=== PATIENT | female | born 1935 | race Caucasian/White ===

== ENCOUNTER 2019-02-24 10:38 | Inpatient (IN) | payer MEDICARE, BC ==
[~2019-02-24] VITALS: Ht 157.5 cm; Wt 46.3 kg
--- NOTE | 2019-02-24 10:45 | NUR ---
patient TAMMY, from [facility], had a syncopal episode while getting out of elevator assisted by caregiver. On room air, breathing evenly and unlabored. Connected to the monitor and pulse ox. kept comfortable, will continue to monitor accordingly.
[2019-02-24] MEDS ORDERED: IV NS 0.9% 500 ML BAG IV ONE (11:00)
[2019-02-24 11:06] LABS: BASOPHILS # (AUTO) 0.1 /CMM (0.0-0.2); BASOPHILS % (AUTO) 0.5 % (0.0-2.0); EOSINOPHILS % (AUTO) 1.7 % (0.0-6.0); HEMATOCRIT 39 % (33-45); HEMOGLOBIN 12.9 g/dL (11.5-14.8); LYMPHOCYTES # (AUTO) 0.8 /CMM (0.8-4.8); LYMPHOCYTES % (AUTO) 7.7 % (20.0-44.0); MEAN CORPUSCULAR HGB CONC 33 g/dl (31.0-36.0); MEAN CORPUSCULAR VOLUME 91 fL (82-100); MONOCYTES # (AUTO) 0.7 /CMM (0.1-1.30); MONOCYTES % (AUTO) 6.8 % (2.0-12.0); NEUTROPHILS # (AUTO) 8.5 /CMM (1.8-8.9); NEUTROPHILS % (AUTO) 83.3 % (43.0-81.0); PLATELET COUNT (AUTO) 265 /CMM (150-450); RED BLOOD CELL COUNT(AUTO) 4.23 MIL/uL (4.0-5.2); WHITE BLOOD COUNT (AUTO) 10.2 K/uL (4.3-11.0)
[2019-02-24] MEDS ORDERED: DONE10TA44 PO (11:13)
[2019-02-24] MEDS ORDERED: MEMA10TA PO (11:13)
[2019-02-24] MEDS ORDERED: LISI-603 PO (11:13)
[2019-02-24] MEDS ORDERED: ROSU10TA2 PO (11:13)
[2019-02-24] MEDS ORDERED: LEVO25TA7 PO (11:13)
[2019-02-24 11:21] LABS: CALCIUM, SERUM 10.2 mg/dL (8.5-10.1); CARBON DIOXIDE 29 mmol/L (21-32); CHLORIDE 100 mmol/L (98-107); GLUCOSE 122 mg/dL (74-106); SODIUM SERUM 136 mmol/L (136-145); UREA NITROGEN, BLOOD 15 mg/dL (7-18)
[2019-02-24 11:36] LABS: ALANINE AMINOTRANSFERASE 11 U/L (12-78); ALKALINE PHOSPHATASE 83 U/L (46-116); ASPARTATE AMINOTRANSFERASE 20 U/L (15-37); BILIRUBIN,DIRECT 0.1 mg/dL (0.0-0.2); BILIRUBIN,TOTAL 0.6 mg/dL (0.2-1.0); TOTAL PROTEIN, SERUM 7.8 g/dL (6.4-8.2)
--- NOTE | 2019-02-24 12:31 | NUR ---
EPIC ON-CALL PAGED AGAIN
--- NOTE | 2019-02-24 12:46 | NUR ---
NURSING SUP GAVE BED 327-2.
--- NOTE | 2019-02-24 12:55 | NUR ---
report given to Bijal LOWRY for giuliano.
--- NOTE | 2019-02-24 13:13 | NUR ---
PAGED Adteractive FOR THIRD TIME.
--- NOTE | 2019-02-24 13:58 | NUR ---
wheeled patient via gurney accompanied by RN and emt in no apparent distress, victorino RN at bedside to assume care.
[2019-02-24] MEDS ORDERED: Z GUARD REMEDY 2 OZ OINT TP PRN (14:00)
[2019-02-24] MEDS ORDERED: MAG HYDROX/AL HYDROX/SIMETH 30 ML UDC PO PRN (14:00)
[2019-02-24] MEDS ORDERED: ACETAMINOPHEN 325 MG TABLET PO PRN (14:00)
[2019-02-24] MEDS ORDERED: HYDROCODONE/APAP 5/325MG 1 EACH TABLET PO PRN (14:00)
[2019-02-24] MEDS ORDERED: ONDANSETRON HCL/PF 4 MG/2 ML VIAL IVP PRN (14:00)
[2019-02-24] MEDS ORDERED: ZOLPIDEM TARTRATE 5 MG TABLET PO PRN (14:00)
[2019-02-24] MEDS ORDERED: MAGNESIUM HYDROXIDE 30 ML UDC PO PRN (14:00)
[2019-02-24 16:00] VITALS: BP_SYST 140; BP_SYST 149; BP_DIAS 73
--- NOTE | 2019-02-24 16:00 | NUR ---
MS RN RECEIVED A NEW ADMISSION,83 YEARS OLD PATIENT, AWAKE,ALERT,ORIENTED X3-4 ,CAME IN W/ DX OF SYNCOPE,NOT IN ANY FORM OF DISTRESS, RESPIRATIONS EVEN AND UNLABORED,ALL NEEDS ATTENDED.
--- NOTE | 2019-02-24 17:00 | NUR ---
MS RN ON BED, NO DISTRESS NOTED,ALL NEEDS ATTENDED.
--- NOTE | 2019-02-24 18:20 | NUR ---
ms rn on bed, all needs attended.
[2019-02-24] MEDS: IV NS 0.9% 1,000 ML IV SCH (18:27)
[2019-02-24 20:00] VITALS: BP 90/70
[2019-02-25 01:00] VITALS: BP 136/91
--- NOTE | 2019-02-25 02:00 | NUR ---
pt confused out of bed. patient set bed alarm off. confused states she needs to get back to her room. "I am in room 317. I need to go up stairs that is where my clothes are." patient reoriented to unit. and helped back into bed. reinforced she will arpit be with us a short time and will then most likely return to her apartment at [place]. srx2 bed alarm active. will cont to monitor.
[2019-02-25] MEDS: IV NS 0.9% 1,000 ML IV SCH (02:56)
--- NOTE | 2019-02-25 02:57 | NUR ---
ivf missed dose, previous unit still infusing.
[2019-02-25 04:00] VITALS: BP 139/68
--- NOTE | 2019-02-25 06:00 | NUR ---
RN PM CLOSING NOTE. PATIENT ASSISTED TO THE BATHROOM. HAD TO BE REORIENTED AGAIN TO PLACE AND WHAT HAPPENED TO GET HER IN THE HOSPITAL. PATIENT VERBALIZED UNDERSTANDING AND ASSISTED BACK TO BED. PATIENT DENIES PAIN OR DIZINESS. PATIENT HAS NS AT 75ML PER HOUR IV HAS NO S/S OF COMPLICATIONS. SAFETY PRECAUTIONS IN PLACE BED ALARM ACTIVE.
[2019-02-25 06:22] LABS: BASOPHILS # (AUTO) 0.1 /CMM (0.0-0.2); EOSINOPHILS % (AUTO) 1.1 % (0.0-6.0); HEMATOCRIT 36 % (33-45); LYMPHOCYTES % (AUTO) 12.1 % (20.0-44.0); MEAN CORPUSCULAR HGB CONC 34 g/dl (31.0-36.0); MEAN CORPUSCULAR VOLUME 90 fL (82-100); MONOCYTES % (AUTO) 11.6 % (2.0-12.0); NEUTROPHILS # (AUTO) 6.3 /CMM (1.8-8.9); NEUTROPHILS % (AUTO) 74.2 % (43.0-81.0); PLATELET COUNT (AUTO) 229 /CMM (150-450); RED BLOOD CELL COUNT(AUTO) 3.97 MIL/uL (4.0-5.2); WHITE BLOOD COUNT (AUTO) 8.5 K/uL (4.3-11.0)
[2019-02-25 06:50] LABS: CALCIUM, SERUM 9.2 mg/dL (8.5-10.1); CREATININE 0.8 mg/dL (0.6-1.3); MAGNESIUM 1.8 mg/dL (1.8-2.4); PHOSPHORUS 3.1 mg/dL (2.5-4.9); POTASSIUM 3.7 mmol/L (3.5-5.1)
[2019-02-25] MEDS ORDERED: IV NS 0.9% 1,000 ML IV PRN (07:48)
--- NOTE | 2019-02-25 07:57 | NUR ---
MEAT CURER OPENING NOTES RECEIVED PT LAYING IN BED WITH HOB ELEVATED. PT IS A/O X2, AFEBRILE. RESPIRATIONS ARE EVEN AND UNLABORED, NOT IN ANY ACUTE DISTRESS NOTED. PT DENIES ANY PAIN AT THIS TIME, NO C/O SOB, N/V. IV SITE TO LAC INTACT, NO INFILTRATION NOTED. DRESSING KEPT CLEAN AND DRY. SAFETY MEASURES ARE IN PLACE. INSTRUCTED PT TO USE CALL LIGHT WHEN ASSISTANCE IS NEEDED, CALL LIGHT IS LEFT WITHIN REACH. WILL MONITOR THROUGHOUT SHIFT FOR CONTINUITY OF CARE.
[2019-02-25 08:00] VITALS: BP_SYST 119; BP_SYST 125; BP_SYST 139; BP_DIAS 68; BP_DIAS 77; BP_DIAS 83
[2019-02-25] MEDS: LEVOTHYROXINE SODIUM 100 MCG TABLET PO SCH (08:53)
[2019-02-25] MEDS: MEMANTINE HCL 5 MG TABLET PO SCH (08:53)
[2019-02-25] MEDS: DONEPEZIL 5 MG TABLET PO SCH (08:53)
[2019-02-25] MEDS: LISINOPRIL (20MG) 20 MG TABLET PO SCH (08:54)
[2019-02-25] MEDS ORDERED: ATORVASTATIN 10 MG TABLET PO SCH (09:00)
--- NOTE | 2019-02-25 12:31 | NUR ---
MS RN NOTES-- PT ABLE TO MAKE NEEDS KNOWN, NEEDS RENDERED. PT DOES NOT APPEAR TO BE IN ANY ACUTE DISTRESS. WILL CONTINUE TO MONITOR.
--- NOTE | 2019-02-25 18:22 | NUR ---
MS RN CLOSING NOTES ALL DUE MEDS GIVEN. NEEDS MET AND RENDERED. PT REMAINS A/O X2, AFEBRILE. RESPIRATIONS ARE EVEN AND UNLABORED, NOT IN ANY ACUTE DISTRESS NOTED. PT DENIES ANY PAIN AT THIS TIME, NO C/O SOB, N/V. IV SITE TO LFA G22 INTACT, NO INFILTRATION NOTED. DRESSING KEPT CLEAN AND DRY. SAFETY MEASURES ARE IN PLACE. REMINDED PT TO USE CALL LIGHT WHEN ASSISTANCE IS NEEDED, CALL LIGHT IS LEFT WITHIN REACH. WILL ENDORSE TO NEXT SHIFT FOR CONTINUITY OF CARE.
[2019-02-25 20:00] VITALS: BP 145/77
--- NOTE | 2019-02-25 20:00 | NUR ---
MS/RN OPENING NOTES RECEIVED PATIENT IN BED, AWAKE, ALERT, SITTING IN BED, ABLE TO AMBULATE WITH ASSISTACNE, REQUIRE FREQUENT MONITORING FOR SAFETY, BED LOCKED, CALL LIGHTS WITHIN REACH, ABLE TO EAT SNACKS AND DRINK FLUIDS, DENIES ANY PAIN. WILL MONITOR FOR ANY CHANGES. BED LOCKED, CALL LIGHTS WITHIN REACH, EDUCATED TO USE CALL LIGHTS FOR ASSISTANCE, IV ON LFA GAUGW 20 WITH NO REDNESS OR INFILTRATION.
--- NOTE | 2019-02-25 23:54 | NUR ---
MS/RN NOTES PATIENT REMOVE IV, PULL OUT AND UNABLE TO SIT STILL REQUIRE MONITOIRNG, KEPR COMFORTABLE AND ASSISTED TO BED, DISCUSSED SAFETY, PATIENT WITH FORGETFULNESS BUT ABLE TO COOPERATE WITH REORIENTATION. WILL MONITOR.ABLE TO DRINK FLUIDS, REFUSED IV REINSERTION.
--- NOTE | 2019-02-26 00:17 | NUR ---
MS/RN NOTES PATIENT OBSERVE CHANGING INTO HER CLOTHES AND WANTING TO GO BACK TO HER ROOM, ALERT X1, REORIENTED TO PLACE AND TIME. TO MONITOR.
[2019-02-26 05:47] VITALS: BP_SYST 132; BP_SYST 136; BP_SYST 146; BP_DIAS 92; BP_DIAS 93; BP_DIAS 96
--- NOTE | 2019-02-26 05:53 | NUR ---
MS/RN NOTES PATIENT REORIENTED TO TIME AND PLACE, REQUIRING FREQUENT MONITORING FOR SAFETY PATIENT TENDS TO LEAVE THE ROOM, REFUSE IV REINSERTION AND STATED SHE HAS BEEN DRINKING ALOT OF FLUIDS, WILL ENCOURAGE AND PROVIDE FLUIDS.TO HAVE MD AWARE ABOUT VITAL SIGNS SITTING, STANDING AND LYING. 136/43, 132/93, 146/92 RESPECTIVELY.
--- NOTE | 2019-02-26 06:57 | NUR ---
MS/RN CLOSING NOTES PATIENT IN BED ABLE TO AMBULATE AND REQUIRE ASSISTANCE, REORIENTATION AT TIMES, RESPIRATIONS EVEN AND UNLABORED, REFUSES TO HAVE IV REINSERTION AT THIS TIME BUT ABLE TO DRINK ADEQUATE FLUIDS WHEN OFFERED.WILL MONITOR, TO ENDORSE TO AM RN FOR JESSICA. BED LOCKED, CALL LIGHTS WITHIN REACH.
[2019-02-26 07:21] LABS: BASOPHILS # (AUTO) 0.1 /CMM (0.0-0.2); BASOPHILS % (AUTO) 0.8 % (0.0-2.0); EOSINOPHILS % (AUTO) 2.7 % (0.0-6.0); HEMATOCRIT 39 % (33-45); HEMOGLOBIN 12.6 g/dL (11.5-14.8); LYMPHOCYTES # (AUTO) 1.3 /CMM (0.8-4.8); LYMPHOCYTES % (AUTO) 14.7 % (20.0-44.0); MEAN CORPUSCULAR HGB CONC 33 g/dl (31.0-36.0); MEAN CORPUSCULAR VOLUME 90 fL (82-100); MONOCYTES # (AUTO) 1.1 /CMM (0.1-1.30); MONOCYTES % (AUTO) 11.8 % (2.0-12.0); NEUTROPHILS # (AUTO) 6.4 /CMM (1.8-8.9); PLATELET COUNT (AUTO) 257 /CMM (150-450); RED BLOOD CELL COUNT(AUTO) 4.29 MIL/uL (4.0-5.2); WHITE BLOOD COUNT (AUTO) 9.1 K/uL (4.3-11.0)
[2019-02-26 07:28] LABS: CALCIUM, SERUM 9.3 mg/dL (8.5-10.1); CREATININE 0.7 mg/dL (0.6-1.3); POTASSIUM 3.4 mmol/L (3.5-5.1)
--- NOTE | 2019-02-26 07:33 | NUR ---
MS RN OPENING NOTES RECEIVED PT LAYING IN BED WITH HOB ELEVATED. PT IS A/O X2, AFEBRILE. RESPIRATIONS ARE EVEN AND UNLABORED, NOT IN ANY ACUTE DISTRESS NOTED. PT DENIES ANY PAIN AT THIS TIME, NO C/O SOB, N/V. IV SITE TO LFA INTACT, NO INFILTRATION NOTED. DRESSING KEPT CLEAN AND DRY. SAFETY MEASURES ARE IN PLACE. INSTRUCTED PT TO USE CALL LIGHT WHEN ASSISTANCE IS NEEDED, CALL LIGHT IS LEFT WITHIN REACH. WILL MONITOR THROUGHOUT SHIFT FOR CONTINUITY OF CARE.
[2019-02-26 08:00] VITALS: BP 123/60
[2019-02-26] MEDS: DONEPEZIL 5 MG TABLET PO SCH (08:28)
[2019-02-26] MEDS: LEVOTHYROXINE SODIUM 100 MCG TABLET PO SCH (08:28)
[2019-02-26] MEDS: MEMANTINE HCL 5 MG TABLET PO SCH (08:28)
[2019-02-26 08:29] VITALS: BP 123/60
[2019-02-26] MEDS: LISINOPRIL (20MG) 20 MG TABLET PO SCH (08:29)
--- NOTE | 2019-02-26 08:30 | NUR ---
MS RN NOTES-- PT WAS SEEN AND EXAMINED BY DR. TOMMY Adams/ ORDERS FOR DISCHARGE.
[2019-02-26] MEDS ORDERED: POTASSIUM CHLORIDE 20 MEQ TAB.PRT.SR PO SCH (11:00)
--- NOTE | 2019-02-26 11:15 | NUR ---
MS STONE SETTER METAL OPTICAL FRAMES NOTE PT DISCHARGED TO [facility] IN MEDICALLY STABLE CONDITION. PT IS A/O X2, AFEBRILE. RESPIRATIONS ARE EVEN AND UNLABORED, NOT IN ANY ACUTE DISTRESS NOTED. PUPILS ARE REACTIVE TO LIGHT, BILATERAL HAND PORTFOLIO DIRECTOR ARE STRONG AND EQUAL. PT DENIES ANY PAIN, SOB, N/V. ABDOMEN IS SOFT AND NONDISTENDED, BOWEL SOUNDS ARE PRESENT IN ALL 4 QUADRANTS UPON AUSCULTATION. DENIES ANY BLADDER DISCOMFORT. NO SKIN ISSUES NOTED, SKIN IS INTACT, CLEAN AND DRY. IV SITE REMOVED, APPLIED PRESSURE AND TOLERATED WELL. PT IS AMBULATORY WITH STEADY GAIT. EXPLAINED DISCHARGE PAPERWORK TO [facility] WITH VERBAL UNDERSTANDING. ALL BELONGINGS SENT WITH PT. PT LEFT IN STABLE CONDITION AND ACCOMPANIED TO PERSONAL VEHICLE WITH DTR.
== END 2019-02-26 11:15 | DRG 641 ==
LOC: ER 10:39 → TELE 13:00 → MED 02-25 08:56
PROVIDERS: ADMIT Family Medicine; ATTEND Family Medicine
DX: E86.9 Volume depletion, unspecified (principal); I95.1 Orthostatic hypotension; R73.9 Hyperglycemia, unspecified; E78.5 Hyperlipidemia, unspecified; E03.9 Hypothyroidism, unspecified; E83.52 Hypercalcemia; F03.90 Unspecified dementia, unspecified severity, without behavioral disturbance, psychotic disturbance, mood disturbance, and anxiety; I10 Essential (primary) hypertension; E86.0 Dehydration
CPT/HCPCS: 36415; 71045-TC; 80048-TC; 80061-TC; 80076-TC; 82962-TC; 83735-TC; 84100-TC; 84484-TC; 85025-TC; 87081-TC; 93307-TC; 93880-TC; G0378; J7030; J7040

== ENCOUNTER 2019-04-04 10:54 | Emergency (ER) | payer MEDICARE, BC ==
[~2019-04-04] VITALS: Ht 152.4 cm; Wt 45.4 kg
[~2019-04-04 10:54] MED LIST: DONE10TA44 PO; LEVO25TA7 PO; LISI-603 PO; MEMA10TA PO; ROSU10TA2 PO
--- NOTE | 2019-04-04 11:05 | NUR ---
ERNA Lawson FROM THE [facility] C/O WITNESSED SYNCOPAL EPISODE. PATIENT A/OX4, BREATHING EVEN AND UNLABORED, NO SOB NOTED, NEEDS ATTENDED. DENIES PAIN AT THIS TIME. IV LINE ON LEFT AC G20, PATENT AND FLUSHES WELL.
[2019-04-04 11:12] LABS: BASOPHILS # (AUTO) 0.1 /CMM (0.0-0.2); BASOPHILS % (AUTO) 1.2 % (0.0-2.0); EOSINOPHILS % (AUTO) 1.5 % (0.0-6.0); HEMATOCRIT 38 % (33-45); HEMOGLOBIN 12.4 g/dL (11.5-14.8); LYMPHOCYTES # (AUTO) 1.4 /CMM (0.8-4.8); LYMPHOCYTES % (AUTO) 21.5 % (20.0-44.0); MEAN CORPUSCULAR HGB CONC 33 g/dl (31.0-36.0); MEAN CORPUSCULAR VOLUME 92 fL (82-100); MONOCYTES # (AUTO) 0.5 /CMM (0.1-1.30); MONOCYTES % (AUTO) 8.2 % (2.0-12.0); NEUTROPHILS # (AUTO) 4.4 /CMM (1.8-8.9); NEUTROPHILS % (AUTO) 67.6 % (43.0-81.0); PLATELET COUNT (AUTO) 282 /CMM (150-450); WHITE BLOOD COUNT (AUTO) 6.5 K/uL (4.3-11.0)
[2019-04-04 11:28] LABS: CALCIUM, SERUM 9.8 mg/dL (8.5-10.1); POTASSIUM 4.5 mmol/L (3.5-5.1)
[2019-04-04 11:34] LABS: ALBUMIN 3.7 g/dL (3.4-5.0); BILIRUBIN,DIRECT 0.1 mg/dL (0.0-0.2); BILIRUBIN,TOTAL 0.4 mg/dL (0.2-1.0); TOTAL PROTEIN, SERUM 7.1 g/dL (6.4-8.2)
[2019-04-04] MEDS ORDERED: LISI2.5T2 PO (11:48)
--- NOTE | 2019-04-04 12:13 | NUR ---
ROOM GIVEN:117-1 RN DONAVAN
--- NOTE | 2019-04-04 12:16 | NUR ---
EPIC paged, awaiting panel call
--- NOTE | 2019-04-04 12:47 | NUR ---
report given to monika christopher.
--- NOTE | 2019-04-04 13:04 | NUR ---
Patient a/ox3, breathing even and unlabored, no sob noted. Needs attended. IV removed. Catheter intact and site benign. Pressure and 4x4 applied to site. No bleeding noted.Patient discharged to home in stable condition. Written and verbal after care instructions given. Patient verbalizes understanding of instruction.
[2019-04-04 13:05] VITALS: BP 131/97
== END 2019-04-04 13:06 | disposition home or self-care (01) ==
LOC: ER 10:56 → UNDOADMIN 12:45 → TELE1 12:45
DX: R55 Syncope and collapse (principal); E03.9 Hypothyroidism, unspecified; Z79.899 Other long term (current) drug therapy
CPT/HCPCS: 36415; 70450-TC; 71045-TC; 72125-TC; 80048-TC; 80076-TC; 84484-TC; 85025-TC; 85730-TC; 87081-TC

== ENCOUNTER 2020-04-01 17:18 | Inpatient (IN) | payer MEDICARE, BC ==
[~2020-04-01] VITALS: Ht 152.4 cm; Wt 46.3 kg
[~2020-04-01 17:18] MED LIST changes: -LISI-603 PO; +LISI2.5T2 PO
--- NOTE | 2020-04-01 17:25 | NUR ---
PT STACYRA C/O GLF, PT ALSO C/O R HIP PAIN 12/27. VS CHECKED. AWAITING MD DONOVAN.
--- NOTE | 2020-04-01 18:58 | NUR ---
COVID SWAB DONE. BLOOD DRAW DONE. SENT TO LAB.
[2020-04-01 19:04] LABS: BASOPHILS # (AUTO) 0.1 /CMM (0.0-0.2); BASOPHILS % (AUTO) 0.8 % (0.0-2.0); HEMATOCRIT 36 % (33-45); HEMOGLOBIN 11.5 g/dL (11.5-14.8); LYMPHOCYTES # (AUTO) 1.3 /CMM (0.8-4.8); LYMPHOCYTES % (AUTO) 11.5 % (20.0-44.0); MEAN CORPUSCULAR HGB CONC 33 g/dl (31.0-36.0); MEAN CORPUSCULAR VOLUME 92 fL (82-100); MONOCYTES # (AUTO) 1.2 /CMM (0.1-1.30); MONOCYTES % (AUTO) 11.2 % (2.0-12.0); NEUTROPHILS # (AUTO) 8.1 /CMM (1.8-8.9); NEUTROPHILS % (AUTO) 73.5 % (43.0-81.0); PLATELET COUNT (AUTO) 277 /CMM (150-450); RED BLOOD CELL COUNT(AUTO) 3.88 MIL/uL (4.0-5.2); WHITE BLOOD COUNT (AUTO) 11.1 K/uL (4.3-11.0)
--- NOTE | 2020-04-01 19:04 | NUR ---
COVID SWAB SENT.
[2020-04-01 19:11] LABS: CALCIUM, SERUM 9.3 mg/dL (8.5-10.1); CREATININE 0.7 mg/dL (0.6-1.3); POTASSIUM 4.5 mmol/L (3.5-5.1)
--- NOTE | 2020-04-01 19:15 | NUR ---
PT AAOX3, VSS, RESPIRATIONS EVEN AND UNLABORED ON RA W/ NAD NOTED. PT CONNECTED TO THE MONITOR AND POX. PT ADMITS TO BE ANXIOUS AT THIS TIME. DENIES PAIN
[2020-04-01] MEDS ORDERED: ZOLPIDEM TARTRATE 5 MG TABLET PO PRN (20:00)
[2020-04-01] MEDS ORDERED: ACETAMINOPHEN 325 MG TABLET PO PRN (20:00)
[2020-04-01] MEDS ORDERED: ONDANSETRON HCL/PF 4 MG/2 ML VIAL IVP PRN (20:00)
[2020-04-01] MEDS ORDERED: MAGNESIUM HYDROXIDE 30 ML UDC PO PRN (20:00)
[2020-04-01] MEDS ORDERED: MAG HYDROX/AL HYDROX/SIMETH 30 ML UDC PO PRN (20:00)
[2020-04-01] MEDS ORDERED: Z GUARD REMEDY 2 OZ OINT TP PRN (20:00)
--- NOTE | 2020-04-01 21:48 | NUR ---
REPORT GIVEN TO ESSENCE CHUNG FOR JESSICA
--- NOTE | 2020-04-01 22:12 | NUR ---
PT TRANSFERRED TO ROOM IN STABLE CODITION
[2020-04-01 22:36] VITALS: BP 160/76
[2020-04-01] MEDS: MEMANTINE HCL 5 MG TABLET PO SCH (23:32)
[2020-04-01] MEDS: HYDROCODONE/APAP 5/325MG TABLET PO PRN (23:34)
[2020-04-02] VITALS (7 sets, daily range): BP systolic 100–160; BP diastolic 53–76
--- NOTE | 2020-04-02 05:19 | NUR ---
alert with confusion, asking questions about where she is repeating her self bruises on her heet and thigh left and buttocks medicated x1 with NORCO tab 1 for restlessness and effective, restlessness appeared to bd d/t left hip discomfort voided on the bedpan clear yellow urine i am not able to convince the patient she has a fx hip bedrest bedalarm on
[2020-04-02 05:52] LABS: BASOPHILS # (AUTO) 0.1 /CMM (0.0-0.2); BASOPHILS % (AUTO) 0.7 % (0.0-2.0); EOSINOPHILS % (AUTO) 2.2 % (0.0-6.0); HEMATOCRIT 37 % (33-45); HEMOGLOBIN 12.1 g/dL (11.5-14.8); LYMPHOCYTES # (AUTO) 1.1 /CMM (0.8-4.8); LYMPHOCYTES % (AUTO) 11.1 % (20.0-44.0); MEAN CORPUSCULAR HGB CONC 33 g/dl (31.0-36.0); MEAN CORPUSCULAR VOLUME 91 fL (82-100); MONOCYTES % (AUTO) 9.9 % (2.0-12.0); NEUTROPHILS # (AUTO) 7.7 /CMM (1.8-8.9); NEUTROPHILS % (AUTO) 76.1 % (43.0-81.0); PLATELET COUNT (AUTO) 308 /CMM (150-450); RED BLOOD CELL COUNT(AUTO) 4.08 MIL/uL (4.0-5.2); WHITE BLOOD COUNT (AUTO) 10.2 K/uL (4.3-11.0)
[2020-04-02 06:17] LABS: CALCIUM, SERUM 9.3 mg/dL (8.5-10.1); CREATININE 0.8 mg/dL (0.6-1.3); PHOSPHORUS 2.9 mg/dL (2.5-4.9); POTASSIUM 3.7 mmol/L (3.5-5.1)
[2020-04-02 06:30] LABS: THYROID STIMULATING HORMONE 1.826 uIU/mL (0.358-3.74)
[2020-04-02] MEDS: LEVOTHYROXINE SODIUM 100 MCG TABLET PO SCH (06:35)
[2020-04-02] MEDS: HYDROCODONE/APAP 5/325MG TABLET PO PRN ×2 (06:36→17:11)
--- NOTE | 2020-04-02 07:00 | NUR ---
PT AWAKE IN BED, A/O X2. NEEDS REORIENTATION OF CURRENT SETTING AND SITUATION. ON RA WITH NO SIGNS OF DISTRESS. DENIES SOB. R AC SALINE LOCKED AND FLUSHED WELL. DRESSING DRY INTACT. FOLLOWING HIP PRECAUTIONS. NOTED BRUISES ALONGSIDE LEFT SIDE OF BODY. PT ABLE TO USE BEDPAN WITH ASSISTANCE. WILL MONITOR L HIP FX, AND MANAGE PAIN TODAY. WILL REPORT TO MD AND FAMILY NEEDED. ALL HOSPITAL POLICY SAFETY PRECAUTIONS IMPLEMENTED.
[2020-04-02] MEDS: LISINOPRIL (5MG) 5 MG TABLET PO SCH (08:12)
[2020-04-02] MEDS: DONEPEZIL 5 MG TABLET PO SCH (08:12)
[2020-04-02] MEDS: MEMANTINE HCL 5 MG TABLET PO SCH ×2 (08:12→20:04)
[2020-04-02] MEDS: ATORVASTATIN 40 MG TABLET PO SCH (08:13)
--- NOTE | 2020-04-02 11:07 | NUR ---
TRIED PERIPHERAL IV 3X UNSUCCESFUL,OBTAINED MIDLINE ORDERS,NURSING SUP MADE AWARE.
[2020-04-02 15:18] LABS: BILIRUBIN,URINE NEGATIVE (NEGATIVE); BLOOD, URINE TRACE-INTA Ery/uL (NEGATIVE); COLOR,URINE YELLOW (YELLOW); LEUKOCYTE ESTERASE ,URINE NEGATIVE (NEGATIVE); NITRITE, URINE NEGATIVE (NEGATIVE); PROTEIN,URINE NEGATIVE (NEGATIVE); UGLUCOSE NEGATIVE (NEGATIVE); UROBILINOGEN,URINE 0.2 EU/dL (0.2)
[2020-04-02 16:03] LABS: BACTERIA,URINE None seen /HPF (None Seen); RBC,URINE 0-2 /HPF (0-2); SQUAMOUS EPITHELIAL CELL,UR 0-2 /HPF (None Seen); WBC,URINE 0-2 /HPF (0-3)
--- NOTE | 2020-04-02 18:44 | NUR ---
PT AWAKE IN BED, A/O X1-2. NEEDED REORIENTATION OF CURRENT SETTING AND SITUATION FREQUENTLY. ON RA WITH NO SIGNS OF DISTRESS. DENIES SOB. L UA MIDLINE SALINE LOCKED AND FLUSHED WELL. DRESSING DRY INTACT. FOLLOWING HIP PRECAUTIONS. NOTED BRUISES ALONGSIDE LEFT SIDE OF BODY. PT ABLE TO USE BEDPAN WITH ASSISTANCE. MONITORED L HIP FX, MANAGED PAIN TODAY. WILL REPORT TO MD AND FAMILY NEEDED. ALL HOSPITAL POLICY SAFETY PRECAUTIONS IMPLEMENTED. ALL ORDERS IMPLEMENTED. NPO AFTER MIDNIGHT ORDERED AND ALL CONSENTS SIGNED.
--- NOTE | 2020-04-02 19:30 | NUR ---
RN NOTE RECEIVED IN BED, AWAKE BUT CONFUSED. PATIENT IN NO S/SX OF ACUTE DISTRESS AT THIS TIME. NO SOB NOTED. PATIENT'S BREATHING IS EVEN AND UNLABORED, SATURATING AT 96% ON ROOM AIR. NOTED IV SITE AT JOSY MIDLINE G18, PATENT AND FLUSHING WELL, NO SIGN OF INFECTION NOTED. STARTED IV FLUID OF NS AT 100 ML/HR PER ORDERS FROM DR SILVER. NOTED BRUISING AT BLE. NO COMPLAINTS OF PAIN AT THIS TIME. PATIENT SAID SHE WANTED TO GET UP FROM BED AND WALK AROUND, EXPLAINED RISKS OF FALLING DUE TO HER L HIP FRACTURE. SAFETY MEASURES IMPLEMENTED PER PROTOCOL. PATIENT BED ALARM IS ON. HEAD OF BED ELEVATED. BED IS LOCKED, IN LOWEST POSITION AND SIDE RAILS UP. CALL LIGHT WITHIN REACH OF THE PATIENT. WILL START PATIENT ON NPO POST 12 MIDNIGHT DUE TO UPCOMING SURGERY TOMORROW. WILL CONTINUE TO MONITOR AND REASSESS FOR ANY CHANGES.
[2020-04-02] MEDS: IV NS 0.9% 1,000 ML IV PRN (20:02)
[2020-04-03] VITALS (8 sets, daily range): BP systolic 116–157; BP diastolic 53–85
[2020-04-03] MEDS: MORPHINE SULFATE INJ 2 MG/ML DISP.SYRIN IV PRN (03:19)
--- NOTE | 2020-04-03 03:45 | NUR ---
RN NOTE NOTED PATIENT PULLED OUT JOSY MIDLINE. REINSERTED ANOTHER IV LINE AT RIGHT HAND G22, AND LFA G22. BOTH PATENT AND FLUSHING WELL. ASEPTIC WAS OBSERVED. RN CVOR MADE AWARE.
[2020-04-03] MEDS: IV NS 0.9% 1,000 ML IV PRN ×2 (06:10→21:42)
[2020-04-03 06:19] LABS: BASOPHILS # (AUTO) 0.1 /CMM (0.0-0.2); BASOPHILS % (AUTO) 0.5 % (0.0-2.0); EOSINOPHILS % (AUTO) 0.6 % (0.0-6.0); HEMATOCRIT 36 % (33-45); HEMOGLOBIN 11.8 g/dL (11.5-14.8); LYMPHOCYTES % (AUTO) 8.6 % (20.0-44.0); MEAN CORPUSCULAR HGB CONC 33 g/dl (31.0-36.0); MEAN CORPUSCULAR VOLUME 90 fL (82-100); MONOCYTES # (AUTO) 1.2 /CMM (0.1-1.30); MONOCYTES % (AUTO) 10.5 % (2.0-12.0); NEUTROPHILS # (AUTO) 9.2 /CMM (1.8-8.9); NEUTROPHILS % (AUTO) 79.8 % (43.0-81.0); PLATELET COUNT (AUTO) 366 /CMM (150-450); RED BLOOD CELL COUNT(AUTO) 4.01 MIL/uL (4.0-5.2); WHITE BLOOD COUNT (AUTO) 11.6 K/uL (4.3-11.0)
[2020-04-03] MEDS: LEVOTHYROXINE SODIUM 100 MCG TABLET PO SCH (07:30)
[2020-04-03 07:45] LABS: ALBUMIN 2.9 g/dL (3.4-5.0); BILIRUBIN,TOTAL 0.7 mg/dL (0.2-1.0); CALCIUM, SERUM 9.2 mg/dL (8.5-10.1); CREATININE 0.7 mg/dL (0.6-1.3); MAGNESIUM 1.8 mg/dL (1.8-2.4); PHOSPHORUS 3.1 mg/dL (2.5-4.9); POTASSIUM 4.3 mmol/L (3.5-5.1); TOTAL PROTEIN, SERUM 7.2 g/dL (6.4-8.2)
--- NOTE | 2020-04-03 07:59 | NUR ---
MS RN NOTE PATIENT IN BED ALERT AWAKE WITH CONFUSION , ON RA NO SOB NOTED AT THIS TIME , ON NPO STATUS DUE TO SURGERY , LT HAND HL INTACT, ON IVF ORDERED, BED IN LOWEST AND LOCKED POSITION , WILL CONT TO MONITOR ,ALL NEEDS ATTENDED
[2020-04-03] MEDS: DONEPEZIL 5 MG TABLET PO SCH (08:20)
[2020-04-03] MEDS: MEMANTINE HCL 5 MG TABLET PO SCH ×2 (08:21→21:32)
[2020-04-03] MEDS: ATORVASTATIN 40 MG TABLET PO SCH (08:21)
[2020-04-03] MEDS: LISINOPRIL (5MG) 5 MG TABLET PO SCH (08:21)
[2020-04-03] MEDS ORDERED: BACITRACIN 50000 UNITS/VIAL ONE (08:24)
[2020-04-03] MEDS ORDERED: BUPIVACAINE 0.5 % PF 150 MG/30 ML VIAL ONE (08:24)
--- NOTE | 2020-04-03 08:43 | NUR ---
MS RN NOTE TAKEN TO SURGERY
[2020-04-03] MEDS ORDERED: TRANEXAMIC ACID 1,000 MG in IV NS 0.9% 100 ML IV ONE (09:00)
--- NOTE | 2020-04-03 11:42 | NUR ---
ms rn note back from surgery awake but still confused ,on 2 l of o2 ,saturation 95% abduction pillow between legs in place m,on ivf as ordered, with Johnson cath to gravity with yellow color urine ,lt hip dressing in place ,no bleeding noted , dvt pumps in place, ice on lt hip placed by or nurse,, will cont tammy monitor
--- NOTE | 2020-04-03 12:15 | NUR ---
ms rn note able to eat jello and drink juice, cont on ivf as ordered ,not in distress, saturation 98% ,on 3lnc , will cont to monitor
--- NOTE | 2020-04-03 14:23 | NUR ---
MS RN NOTE PER PT, PT TX WILL BE DONE TOMORROW PATIENT HAVE SURGERY TODAY STILL ASLEEP ON AND OFF
--- NOTE | 2020-04-03 14:46 | NUR ---
MS RN NOTE SLIGHTLY REPOSITION TO RT SIDE, KEEP CLEAN DRY
[2020-04-03] MEDS: ANCEF 1 GM/50 ML D5W IV SCH ×2 (16:23)
--- NOTE | 2020-04-03 17:49 | NUR ---
SENIOR ACCOUNTING MANAGER NOTE HAVING DINNER , FED BY STUDENT SERVICES DIRECTOR , ATE 25% OF FOOD, ALL NEEDS ATTENDED ,NOT IN DISTRESS
--- NOTE | 2020-04-03 18:47 | NUR ---
MS RN NOTE RESTING COMFORTABLY, ALL NEEDS ATTENDED, ON IVF ORDERED, WILL MONITOR
--- NOTE | 2020-04-03 20:00 | NUR ---
ms rn note Received pt in bed, awake a/o x2. Breathing even and unlabored with no sob or acute distress noted in 2L of 02 via NC. No s/s of pain or discomfort. RFA IV site patent and intact. Left hip dressing clean and dry. Leg abductor in place. All needs rendered. Kept clean and dry . Srx2 up. Call light within reach. Will continue to monitor.
[2020-04-04] MEDS: ANCEF 1 GM/50 ML D5W IV SCH ×4 (01:08→09:08)
[2020-04-04] MEDS ORDERED: AZITHROMYCIN 500 MG VIAL ONE (01:35)
[2020-04-04 04:00] VITALS: BP 120/42
[2020-04-04 05:56] LABS: BASOPHILS % (AUTO) 0.3 % (0.0-2.0); EOSINOPHILS % (AUTO) 0.6 % (0.0-6.0); HEMATOCRIT 28 % (33-45); HEMOGLOBIN 9.5 g/dL (11.5-14.8); LYMPHOCYTES # (AUTO) 0.9 /CMM (0.8-4.8); LYMPHOCYTES % (AUTO) 7.5 % (20.0-44.0); MEAN CORPUSCULAR HGB CONC 34 g/dl (31.0-36.0); MEAN CORPUSCULAR VOLUME 91 fL (82-100); NEUTROPHILS # (AUTO) 9.4 /CMM (1.8-8.9); NEUTROPHILS % (AUTO) 75.6 % (43.0-81.0); PLATELET COUNT (AUTO) 314 /CMM (150-450); RED BLOOD CELL COUNT(AUTO) 3.12 MIL/uL (4.0-5.2); WHITE BLOOD COUNT (AUTO) 12.5 K/uL (4.3-11.0)
[2020-04-04 06:08] LABS: CALCIUM, SERUM 8.7 mg/dL (8.5-10.1); CREATININE 0.6 mg/dL (0.6-1.3); POTASSIUM 3.9 mmol/L (3.5-5.1)
--- NOTE | 2020-04-04 06:57 | NUR ---
MS RN CLOSING NOTE PT IN BED. BREATHING EVEN AND UNLABORED WITH NO SOB OR ACUTE DISTRESS NOTED. NO S/S PAIN AT THE MOMENT. RFA IV PATENT AND INTACT. ALL NEEDS RENDERED. SRX2 UP. LEG ABDUCTOR IN PLACE. BASS IN PLACE. DRAINING YELLOW CLEAR URINE. CALL LIGHT WITHIN REACH. ALL NEEDS RENDERED. WILL ENDORSE TO AM NURSE FOR CONTINUITY OF CARE.
[2020-04-04 08:00] VITALS: BP 140/82
--- NOTE | 2020-04-04 08:00 | NUR ---
RN OPENING NOTE MEDSURG PT RECEIVED IN BED, AWAKE, A/Ox2. PT ON NC 2LPM SPO2 99%, BREATHING IS UNLABORED, NO SIGNS OF RESP DISTRESS OR SOB. PT DENIES PAIN OR DISCOMFORT AT THE MOMENT. BASS CATH IN PLACE DRAINING BAM COLORED URINE THAT IS CLEAR BY GRAVITY. PT HAS RFA IV THAT IS INFUSING NS WELL. NO SIGNS OF INFILTRATION. PT HAS ABDUCTION PILLOW BETWEEN LEGS. SAFETY PRECAUTIONS IN PLACE- BED LOCKED AND IN LOWEST POSITION, CALL LIGHT WITHIN REACH, SR UP x2, PT IN SEMIFOWLERS. WILL CONTINUE TO MONITOR PT.
[2020-04-04] MEDS: LEVOTHYROXINE SODIUM 100 MCG TABLET PO SCH (08:11)
[2020-04-04] MEDS: ATORVASTATIN 40 MG TABLET PO SCH (09:09)
[2020-04-04] MEDS: IV NS 0.9% 1,000 ML IV PRN ×2 (09:09→21:59)
[2020-04-04] MEDS: MEMANTINE HCL 5 MG TABLET PO SCH ×2 (09:09→20:04)
[2020-04-04] MEDS: LISINOPRIL (5MG) 5 MG TABLET PO SCH (09:10)
[2020-04-04] MEDS: DONEPEZIL 5 MG TABLET PO SCH (09:10)
--- NOTE | 2020-04-04 09:30 | NUR ---
RN NOTES DUE MEDS GIVEN
[2020-04-04] MEDS ORDERED: ENOXAPARIN SODIUM 40 MG/0.4 ML DISP.SYRIN SQ SCH (11:00)
[2020-04-04] MEDS: ENOXAPARIN SODIUM 40 MG/0.4 ML DISP.SYRIN SQ SCH (11:54)
[2020-04-04 16:00] VITALS: BP 133/86
--- NOTE | 2020-04-04 19:30 | NUR ---
RN CLOSE PATIENT RESTING IN BED, NOT IN ANY DISTRESS, ON 2L O2 NASAL CANULA, NO SOB, NO DISTRESS. DENIES PAIN AT THIS TIME. IV ACCESS, INFILTRATED, IVF STOPPED. WILL START A NEW ONE. ZOFRAN GIVEN FOR C/O NAUSEA. RECEIVE PT EVAL EARLIER. PM CARE DONE. BASS CATHETER DISCONTINUED EARLIER WITH 100ML URINE OUTPUT. SAFETY MEASURE IN PLACE. CALL LIGHT WITHIN REACH. ALL NEEDS MET. NO OTHER SIGNIFICANT CHANGE IN CONDITION. ENDORSED TO NEXT SHIFT FO JESSICA.
[2020-04-04 20:00] VITALS: BP 113/58
--- NOTE | 2020-04-04 20:00 | NUR ---
MS RN NOTE RECEIVED PT IN BED. A/0 X2. BREATHING EVEN AND UNLABORED WITH NO SOB OR ACUTE DISTRESS NOTED 0N 3LPM. DENIES ANY PAIN OR DISCOMFORT. RFA NOTED WITH SLIGHT SWELLING AROUND AREA. IV FLUIDS NOT CONNECTED TO PATIENT. LFA #22 STARTED WITH GOOD BLOOD RETURN NOTED. IV FLUIDS INFUSING WELL. PT TOLERATED PROCEDURE WELL. PT KEPT CLEAN AND DRY. ALL NEEDS RENDERED. REPOSITIONED MAINTAINING HIP ALIGNED. CALL LIGHT WITHIN REACH. SRX2 UP. BED IN LOWEST POSITION. WILL CONTINUE TO MONITOR
[2020-04-05 04:00] VITALS: BP 132/66
--- NOTE | 2020-04-05 06:43 | NUR ---
MS RN NOTE PT IN BED, AWAKE ALERT AND ORIENTED X2. BREATHING EVEN AND UNLABORED WITH NO SOB OR ACUTE DISTRESS NOTED IN 2L OF 02. DENIES ANY PAIN. LEFT FOREARM IV PATENT AND INTACT. KEPT CLEAN AND DRY. REPOSITIONED. ALL NEEDS RENDERED. SRX2 UP. BED IN LOWEST POSITION. CALL LIGHT WITHIN REACH. WILL ENDORSE TO AM NURSE FOR CONTINUITY OF CARE.
--- NOTE | 2020-04-05 07:15 | NUR ---
RN OPENING NOTE Received patient asleep in bed appears calm and relaxed. On NC 3L tolerating well O2 sat@ 99%. AO x2 able to communicated verbally. L Hip surgical wound dressing intact. Has LFA #22 IV site running NS @ 100ml/hr. Safety measures maintained. Bed locked and on lowest position. Bed alarm on. Side rails up x3. No co pain or discomfort. Will cont to monitor.
[2020-04-05 08:00] VITALS: BP 132/71
[2020-04-05] MEDS: LEVOTHYROXINE SODIUM 100 MCG TABLET PO SCH (08:14)
--- NOTE | 2020-04-05 08:15 | NUR ---
Karley from Ortho at bedside.
[2020-04-05] MEDS: LISINOPRIL (5MG) 5 MG TABLET PO SCH (08:26)
[2020-04-05] MEDS: ATORVASTATIN 40 MG TABLET PO SCH (08:26)
[2020-04-05] MEDS: MEMANTINE HCL 5 MG TABLET PO SCH ×2 (08:26→20:22)
[2020-04-05] MEDS: DONEPEZIL 5 MG TABLET PO SCH (08:27)
[2020-04-05] MEDS: ENOXAPARIN SODIUM 40 MG/0.4 ML DISP.SYRIN SQ SCH (08:27)
[2020-04-05] MEDS: IV NS 0.9% 1,000 ML IV PRN (08:28)
[2020-04-05 10:11] LABS: BASOPHILS % (AUTO) 0.4 % (0.0-2.0); EOSINOPHILS % (AUTO) 0.9 % (0.0-6.0); HEMATOCRIT 28 % (33-45); HEMOGLOBIN 9.1 g/dL (11.5-14.8); LYMPHOCYTES # (AUTO) 1.2 /CMM (0.8-4.8); LYMPHOCYTES % (AUTO) 9.3 % (20.0-44.0); MEAN CORPUSCULAR HGB CONC 33 g/dl (31.0-36.0); MEAN CORPUSCULAR VOLUME 91 fL (82-100); MONOCYTES # (AUTO) 1.8 /CMM (0.1-1.30); MONOCYTES % (AUTO) 14.5 % (2.0-12.0); NEUTROPHILS # (AUTO) 9.4 /CMM (1.8-8.9); NEUTROPHILS % (AUTO) 74.9 % (43.0-81.0); PLATELET COUNT (AUTO) 358 /CMM (150-450); RED BLOOD CELL COUNT(AUTO) 3.06 MIL/uL (4.0-5.2); WHITE BLOOD COUNT (AUTO) 12.5 K/uL (4.3-11.0)
[2020-04-05 10:19] LABS: CALCIUM, SERUM 8.3 mg/dL (8.5-10.1); CREATININE 0.8 mg/dL (0.6-1.3); POTASSIUM 3.4 mmol/L (3.5-5.1)
[2020-04-05] MEDS ORDERED: POTASSIUM CHLORIDE 20 MEQ TAB.PRT.SR PO SCH (11:00)
[2020-04-05] MEDS: POTASSIUM CHLORIDE 20 MEQ POWDER PACKET PO SCH ×2 (11:12→12:58)
[2020-04-05 16:00] VITALS: BP 124/57
[2020-04-05 16:09] LABS: *SPE A/G RATIO 0.9 (0.7-1.7); *SPE ALBUMIN 2.3 g/dL (2.9-4.4); *SPE ALPHA-1-GLOBULIN 0.4 g/dL (0.0-0.4); *SPE ALPHA-2-GLOBULIN 0.7 g/dL (0.4-1.0); *SPE BETA GLOBULIN 0.8 g/dL (0.7-1.3); *SPE GLOBULIN, TOTAL 2.5 g/dL (2.2-3.9); *SPE M-SPIKE Not Observed g/dL (Not Observed); *SPEGAMMA GLOBULIN 0.6 g/dL (0.4-1.8)
[2020-04-05] MEDS: HYDROCODONE/APAP 5/325MG TABLET PO PRN (18:21)
--- NOTE | 2020-04-05 18:58 | NUR ---
RN CLOSING NOTE Patient in bed asleep no signs of distress. On room air tolerating well O2 sat 96%. Patient is AO x2 verbally responsive. Has LFA #22 flushes well. All due meds given. Vital signs within normal limits. No co pain or discomfort. Safety measures maintained. Call light within reach. Will endorse to manufacturing supervisor 2nd shift nurse for giuliano
--- NOTE | 2020-04-05 19:30 | NUR ---
RN OPENING NOTE RECEIVED PATIENT IN BED RESTING ALERT ORIENTEDX2 VERBALLY RESPONSIVE NO SOB NOT ACUTE DISTRESS NOTED,ON ROOM AIR O2:96% IV SITE IS ON LEFT FOREARM INTACT PATENT,INCONTINENT TO BOWEL/BLADDER,BED IN LOW POSITON AND LOCKED,BED ALARM IS ON,SAFETY MEASURE IMPLEMENT,CALL LIGHT WITHIN REACH,CONTINUE TO MONITOR.
[2020-04-06] VITALS: BP 124/67
[2020-04-06] MEDS: MORPHINE SULFATE INJ 2 MG/ML DISP.SYRIN IV PRN (02:35)
--- NOTE | 2020-04-06 02:35 | NUR ---
RN NOTE MORPHINE 2MG/ML GIVEN FOR SEVERE PAIN 12/27 CONTINUE TO MONITOR
--- NOTE | 2020-04-06 06:57 | NUR ---
RN CLOSING NOTE PATIENT REMAINS ALERT ORIENTED X2 VERBALLY RESPONSIVE NO SOB NOT ACUTE DISTRESS NOTED,ON ROOM AIR O2:95% IV SITE ON LEFT FOREARM,INTACT PATENT,ALL DUE MEDS GIVEN MD ORDERED KEPT CLEAN AND DRY ALL THE TIME,KEPT COMFORTABLE,IMPLEMENTED SAFETY MEASURE,KEPT CALL LIGHT WITHIN REACH,ALL NEEDS MET.ENDORSE NEXT COMING SHIFT FOR CONTINUATION OF CARE.
--- NOTE | 2020-04-06 07:00 | NUR ---
RN OPENING NOTE PATIENT RECEVIED ASLEEP IN BED, APPEARS CALM AND RELAXED. CURRENTLY ON O2 THERAPY VIA NC, TOLERATING WELL. AOX2, ABLE TO COMMUNICATE NEEDS VERBALLY. L HIP SURGICAL WOUND INTACT. IV LINE LFA 22G INTACT AND PATENT. NO REDNESS OR WELLING AT THIS TIME. SAFETY MEASURES TAKEN PER HOSPITAL POLICY. CALL LIGHT WITHIN REACH, BED LOCKED IN LOWEST POSITION.
[2020-04-06 08:00] VITALS: BP 128/50
[2020-04-06] MEDS: LEVOTHYROXINE SODIUM 100 MCG TABLET PO SCH (08:28)
[2020-04-06] MEDS: LISINOPRIL (5MG) 5 MG TABLET PO SCH (08:28)
[2020-04-06] MEDS: DONEPEZIL 5 MG TABLET PO SCH (08:28)
[2020-04-06] MEDS: MEMANTINE HCL 5 MG TABLET PO SCH (08:29)
[2020-04-06] MEDS: ENOXAPARIN SODIUM 40 MG/0.4 ML DISP.SYRIN SQ SCH (08:37)
--- NOTE | 2020-04-06 13:50 | NUR ---
CALLED [facility] AND SPOKE TO ESSENCE JUNG. GAVE REPORT TO NURSE FOR DISCHARGE. Addendum: 04/06/20 at 1746 by SAJAN SOLER RN TIME: [id number]
[2020-04-06 16:00] VITALS: BP 142/62
--- NOTE | 2020-04-06 16:30 | NUR ---
PATIENT DISCHARGED TO [facility]. GAVE REPORT TO RAEANN LOVE, SAAD. PATIENT'S IV LINE REMOVED, APPLIED PRESSURE AND COVERED WITH DRY DRESSING. NO EXCESSIVE BLEEDING NOTED.
== END 2020-04-06 16:30 | DRG 521 ==
LOC: ER 17:25 → MEDSG1 21:45
PROVIDERS: ADMIT Family Medicine
PROC: 0SRS0JZ Replacement of Left Hip Joint, Femoral Surface with Synthetic Substitute, Open Approach (ICD-10-PCS; principal; 2020-04-03)
PROC: 05HY33Z Insertion of Infusion Device into Upper Vein, Percutaneous Approach (ICD-10-PCS; 2020-04-04)
DX: S72.012A Unspecified intracapsular fracture of left femur, initial encounter for closed fracture (principal); N17.0 Acute kidney failure with tubular necrosis; E87.1 Hypo-osmolality and hyponatremia; W01.0XXA Fall on same level from slipping, tripping and stumbling without subsequent striking against object, initial encounter; Y92.129 Unspecified place in nursing home as the place of occurrence of the external cause; I48.91 Unspecified atrial fibrillation; G30.9 Alzheimer's disease, unspecified; F02.80 Dementia in other diseases classified elsewhere, unspecified severity, without behavioral disturbance, psychotic disturbance, mood disturbance, and anxiety; I10 Essential (primary) hypertension; E78.5 Hyperlipidemia, unspecified; E03.9 Hypothyroidism, unspecified; Z79.899 Other long term (current) drug therapy; D72.829 Elevated white blood cell count, unspecified; E86.1 Hypovolemia; M16.12 Unilateral primary osteoarthritis, left hip; I70.0 Atherosclerosis of aorta; E87.6 Hypokalemia; I73.9 Peripheral vascular disease, unspecified; Z82.3 Family history of stroke
CPT/HCPCS: 36415; 71045-TC; 72192-TC; 73552; 73560-TC; 73620-TC; 80048-TC; 80053-TC; 80061-TC; 81001; 82728-TC; 83540-TC; 83735-TC; 84100-TC; 84155; 84165; 84439-TC; 84443-TC; 84484-TC; 85025-TC; 85730-TC; 86850-TC; 87081-TC; 88305-TC; 88311-TC; 93307-TC; 94799-TC; 97110-TC; 97112-TC; 97116-TC; 97530-TC; A4217; A6209; C1776; C9803; G0378; J0456; J0690; J1100; J1650; J2270; J2405; J3490; J7030; J7060